=== PATIENT | female | born 2005 | race Caucasian/White ===

== ENCOUNTER 2023-01-24 01:20 | Emergency (ER) | payer OTHER ==
--- OUTSIDE RECORDS SUMMARY | 2023-01-24 01:23 | XMS REPORT | Continuity of Care Document ---
:2005 Author Organization [facility] t Address [address] [place] [address] [place] [address] Care Team Providers Name Role Phone Zackary Joya Attending Clinician Unavailable Edson Love Attending Clinician EDSON FAJARDO Attending Clinician Unavailable Physician, No Primary or Family Admitting Clinician Unavaila ble Payers Payer Name Policy Type Policy Number Effective Date Expiration Date S ource Problems Condition Condition Condition Status Onset Resolution Last Treating Co mments Source Name Details Category Date Date Treatment Clinician Date No known No known Disease Unive rs active active ity of problems problems [facility] Allergies, Adverse Reactions, Alerts Allergy Allergy Status Severity Reaction(s) Onset Inactive Treating Comm ents Source Name Type Date Date Clinician No Known DA Active U [facility] Allergie 08-29 Irene s 00:00: Regiona [address] [place] [address] Clindamy Propensi Active Rash Univer s rubina ty to 3-19 ity of adverse 00:: [place] reaction [address] [place] [address] CLINDAM DRUG Active Rash Univers RUBINA INGREDI 3-19 ity of 00:00: [address] Social History Social Habit Start Date Stop Date Quantity Comments Source Exposure to Not sure [facility] SARS-CoV-2 (event) Medica [facility] Sex Assigned At [birth year] [facility] [place] 00:00:00 00:00:00 Medical Branch Smoking Status Start Date Stop Date Source Unknown if ever smoked [facility] Medications Ordered Filled Start Stop Current Ordering Indication Dosage Frequency Signature Comments Components Source Medication Medication Date Date Medication? Clinician (SIG) Name Name FLUoxetine Yes 10mg Take 10 mg U nivers (PROZAC) 10 3-20 by mouth ity of mg capsule 00:15: daily. [place] 05 [facility] diphenhydrA 2020- No 12.5mg 12.5 mg, Univers MINE 05-19 Slow IV ity of (BENADRYL) 23:15: 22:10 Push, [place] injection 00 :00 ONCE, 1 Medical 12.5 mg dose, Fri Branch 05/19/20 at 1815, STAT metoclopram No 10mg 10 mg, Uni vers yanira HCl 05-19 Slow IV ity of (REGLAN) 23:15: 22:09 Push, [place] injection 00 :00 ONCE, 1 Medical 10 mg dose, Fri Branch 05/19/20 at 1815, MARCO iohexol 2020- No [id number] 100mL 100 mL, Univers (OMNIPAQUE 05-19 Intravenou it y of 350 23:00: 22:35 s, ONCE, 1 [place] BULK-100 00 :00 dose, Fri Medica l mL) 05/19/20 at Branch injection 1800, 100 mL Routine ketorolac 2020- No 30mg 30 mg, Unive rs (TORADOL) 05-19 Slow IV ity of injection 23:00: 22:02 Push, [place] 30 mg 00 :00 ONCE, 1 Medical dose, Fri Branch 05/19/20 at 1800, Routine
produce production team member approving Restricted medication : IBIKUNLE, FOLUSHO F NaCl 0.9% 2020- No 1000mL at 999 Uni vers (NS) bolus 05-19 mL/hr, ity of infusion 22:00: 23:51 1,000 mL, Darren as 1,000 mL 00 :00 IV Medical Infusion, Branch ONCE, 1 dose, 05/19/20 at 1700, MARCO ibuprofen Yes [id number] 600mg Take 1 U nivers 600 mg 3-19 tablet by ity of tablet 00:00: mouth [place] 00 every 6 Medical (six) Branch hours as needed for Pain (scale 4-6). Vital Signs Vital Name Observation Time Observation Value Comments Source Systolic blood 2020-05-20 00:00:00 127 mm[Hg] Univer sity of pressure [facility] Diastolic blood 2020-05-20 00:00:00 84 [facility]Hg[facility] 2020-05-20 00:00:00 77 /min [facility] Respiratory rate 2020-05-20 00:00:00 19 /min [facility] Oxygen saturation in 2020-05-20 00:00:00 98 /min [facility] Arterial blood by [facility] Pulse oximetry Ross Body temperature 2020-05-19 21:47:00 37.17 Myrtle [facility] Body weight 2020-05-19 21:47:00 84.823 kg [facility] Procedures Procedure Date / Time Performed Performing Clinician Wellington TYLERID-19 (ID NOW RAPID 2020-05-19 22:56:[address] [facility] TESTING) [facility] CT ABDOMEN PELVIS W 2020-05-19 22:44:[address] [facility] CONTRAST [facility] POCT TEST 2020-05-19 21:58:00 Edson Fajardo [facility] LIPASE 2020-05-19 21:57:00 Edson Fajardo [facility] COMP. METABOLIC PANEL 2020-05-19 21:57:00 [id number] CBC WITH DIFF 2020-05-19 21:57:00 Edson Fajardo [facility] URINALYSIS 2020-05-19 21:57:00 Edson Fajardo [facility] Encounters Start End Encounter Admission Attending Care Care Encounter Source Date/Time Date/Time Type Type Clinicians Facility Department ID 2022-08-29 2022-08-29 Emergency EM Crismon, HCACR TABATHA [id number] [facility] 17:39:00 23:17:00 [facility]12 2022-07-12 Outpatient [facility] [id number] Yakov 10:48:52 10:48:52 0512 F Raymon 2022-07-08 2022-07-08 Outpatient [facility] [id number] Yakov 09:08:15 09:08:15 0508 F [place] 2020-05-19 2020-05-19 Emergency [facility] [id number] Univers 16:48:00 19:17:00 [facility] [id number] [facility] [id number] [facility] [id number] [place] [address] Branch 2020-05-19 2020-05-19 Emergency [facility] [id number] Univers 16:48:00 16:48:00 EDSON [facility] Results Test Description Test Time Test Comments Results Result [facility] e Comments - CT ABD PELVIS 2022-08-29 W/CONT 20:35:00 [facility] : 2005 Sex: F Patient Name: ISAIAS MUJICA Unit No: [id number] EXAMS: CPT CODE: [id number] CT ABD PELVIS W/CONT 98903 Location: H3 CT of the abdomen and CT of the pelvis , 08/29/22 CLINICAL HISTORY: Abdominal pain. Concern for appendicitis in this 16 year-old patient presenting to the emergency room COMPARISON EXAM: None relevant to this study TECHNIQUE: A CT scan of the abdomen and pelvis conducted scanning in the axial plane acquiring contiguous 5mm slice thickness from the diaphragms through the pubic symphysis with non ionic contrast administered . Patient was also administered enteric contrast. There is acquisition of 2D coronal and sagittal reformatted images acquired. This was acquired on CT workstation using MPR software . The examination was performed on updated helical CT scanner , utilizing low-dose radiation technique. Automatic exposure control technique was utilized to reduce radiation dose. Unless otherwise specified , incidental findings do not require dedicated imaging followup. FINDINGS: The liver demonstrates normal size, attenuation and contour without focal masses or enlargement. The gallbladder is unremarkable. No biliary distention is seen. The spleen is normal in size without focal defects. The adrenal glands are unremarkable without masses. The pancreas demonstrates normal contour and attenuation without definite focal masses or enlargement. There is no effacement of the peripancreatic fat to suggest an inflammatory process. There are no peripancreatic fluid collections. Bowel gas pattern is non obstructed and non specific without pneumoperitoneum or pneumatosis. There is visualization of a normal appendix without appendicitis. There is fluid however seen embedded within the small bowel mesentery especially in the lower abdomen. With associated wall thickening. This is likely patient care representative enteritis likely infectious/inflammator y in etiology. Do not see a definite drainable collection or abscess. The colon appears unremarkable. The amount of fluid is fairly small without well-defined drainable collection. Both the abdominal aorta and IVC are unremarkable. There is no significant adenopathy within the abdomen. The kidneys demonstrate no hydronephrosis. No fluid collections are identified. [facility] NAME: NATE MUJICA[address] PHYS: ERIK - Torito Valdes [place], [place] [address] : 2005 AGE: 16 SEX: F LOC: ClintSINCERE PHONE #: [phone] EXAM DATE: 08/29/2022 STATUS: REG ER FAX #: [phone] RAD #: D/C DT PAGE 1 Signed Report (CONTINUED) Patient Name: ISAIAS MUJICA Unit No: [id number] EXAMS: CPT CODE: [id number] CT ABD PELVIS W/CONT 82044 (Continued) The bases of the lungs are clear. There is no acute osseous finding. The pelvic contents are unremarkable without mass. No focal fluid collections or adenopathy. IMPRESSION: Normal appendix without appendicitis Findings of concern for enteritis with ill-defined fluid wall and associated wall thickening involving distal small bowel loops in the pelvis without abscess. There is no pneumatosis or pneumoperitoneum. The findings are most likely infectious/inflammator y in etiology. at 2034 Reported and signed by: Dory Matias M.D. CC: Torito Valdes Dictated Date/Time: 08/29/2022 (2034) Technologist: Rome LEONE CTDI: DLP: Trnscrpt: 08/29/2022 (2034) [email or web address] FRANCES [place] NAME: GUANAKO[address] PHYS: VASILECandaceBladimir [place] [address] : 2005 AGE: 16 SEX: F LOC: CristoLive Gamer PHONE #: [phone] EXAM DATE: 08/29/2022 STATUS: REG ER FAX #: [phone] RAD #: D/C DT PAGE 2 Signed Report Patient Name: ISAIAS MUJICA Unit No: [id number] EXAMS: CPT CODE: [id number] CT ABD PELVIS W/CONT 61646 (Continued) Orig Print D/T: S: 08/29/2022 (2037) FRANCES [place] NAME: GUANAKO[address] PHYS: [place] [address] : 2005 AGE: 16 SEX: F LOC: B.Live Gamer PHONE #: [phone] EXAM DATE: 08/29/2022 STATUS: REG ER FAX #: [phone] RAD #: D/C DT PAGE 3 Signed Report HCG SERUM 2022-08-29 20:09:00 Test Item Value Reference Range Interpretation Comme nts HCG SERUM (test code = HCG) <1 mi-IU/ML 0-3 N INTERPRET B-HCG LEVELS LESS THAN OR EQUAL TO 3 MIU/ ML NEG BASIC METABOLIC [id number] 20:09:00 Test Item Value Reference Range Interpretation Comments SODIUM (test code 139.0 mmol/L 133-144 N = NA) POTASSIUM (test 3.4 mmol/L 3.5-5.1 L code = K) CHLORIDE (test 105 mmol/L 95-105 N code = CL) CARBON DIOXIDE 25 mmol/L 21-32 N (test code = CO2) ANION GAP (test 9.0 GAP calc 4.0-15.0 N code = GAP) GLUCOSE (test code 89 MG/DL 70-110 N = GLU) BLOOD UREA 8 MG/DL 7-18 N NITROGEN (test code = BUN) GLOMERULAR 133 estGFR >60 The Glomerular FILTRATION RATE Filtration R ate is a (test code = GFR) calculated parameterbased on serum Creatinin e, patient age and sex. GFR valuesless than 60 mL/min/1.73 squ are meters are jennifer cative ofChronic Kidne y Disease. Values less than 15 mL/min/1.73squa re meters indicate Kidney failure. The calculation for GFR is based on the CK D-EPI (2020) calculat ion. This formulais race indifferent and is the recommended for manuel for GFRby the [facility] Kidney Foundati on for Adults.The GFR will not calculate i f the sex is unknown or if thepatient's ag e is <18 years. CREATININE (test 0.60 MG/DL 0.55-1.30 N Results may be code = CREAT) depressed if p atient is takingN-Acetylc ysteine (NAC) and Metam izole (Dipyrone). CALCIUM (test code 9.4 MG/DL 8.5-10.1 N = CA) INDEX HEMOLYSIS 1 NORMAL <10 See_Comment [Automated message] (test code = MG Index/DL The system Regen HEMINDEX) generated this result transmitted ref erence range: 1 NORMAL . The reference range was not used to int erpret this result as normal/abnormal . INDEX ICTERIC 1 NORMAL <2 MG See_Comment [Automated message] (test code = Index/DL The system Regen ICTINDEX) generated this result transmitted ref erence range: 1 NORMAL . The reference range was not used to int erpret this result as normal/abnormal . INDEX LIPEMIA 1 NORMAL <50 See_Comment [Automated me ssage] (test code = MG Index/DL The system Regen LIPINDEX) generated this result transmitted ref erence range: 1 NORMAL . The reference range was not used to int erpret this result as normal/abnormal . HEPATIC FUNCTION [id number] 20:09:00 Test Item Value Reference Range Interpretation Comments TOTAL PROTEIN (test code = PROT) 8.5 G/DL 6.4-8.2 H ALBUMIN (test code = ALB) 4.3 G/DL 3.4-5.0 N BILIRUBIN TOTAL (test code = BILT) 0.39 MG/DL 0.00-1.00 N BILIRUBIN DIRECT (test code = 0.13 MG/DL 0.00-0.30 N BILD) BILIRUBIN INDIRECT (test code = 0.26 MG/DL 0.2-1.3 N BILIND) SGOT/AST (test code = AST) 16 Unit/L 15-37 N SGPT/ALT (test code = ALT) 22 Unit/L 12-78 N ALKALINE PHOSPHATASE TOTAL (test 76 Unit/L 45-117 N code = ALKP) [id number] 20:09:00 Test Item Value Reference Range Interpretation Comments LIPASE (test code = LIP) 101 Unit/L 114-286 L CBC W/O [id number] 20:08:00 Test Item Value Reference Range Interpretation Comments WHITE BLOOD CELL (test code = WBC) 9.8 K/mm3 4.1-12.1 N RED BLOOD CELL (test code = RBC) 5.03 M/mm3 3.8-5.5 N HEMOGLOBIN (test code = HGB) 10.5 G/DL 10.6-15.8 L HEMATOCRIT (test code = HCT) 34.9 % 31.8-47.4 N MEAN CELL VOLUME (test code = MCV) 69.4 fL 80.1-101.1 L MEAN CELL HGB (test code = MCH) 20.9 pg 25.3-35.3 L MEAN CELL HGB CONCETRATION (test 30.1 G/DL 32.7-35.1 L code = MCHC) RED CELL DISTRIBUTION WIDTH (test 17.2 % 12.2-16.4 H code = RDW) PLATELET COUNT (test code = PLT) 441 K/mm3 155-337 H MEAN PLATELET VOLUME (test code = 8.7 fL 6.8-11.2 N MPV) DIFFERENTIAL [id number] 20:08:00 Test Item Value Reference Range Interpretation Comments MORPHOLOGY COMMENT (test code ON SCAN NORMAL RBCS = MOC) PLATELET ESTIMATE (test code SL INCR ON SCAN ADEQUATE = PLTEST) MICROCYTOSIS (test code = SLIGHT ON SCAN NONE MICR) UA RFLX MICR CULT IF [id number] 19:54:00 Test Item Value Reference Range Interpretation Comments UA COLOR (test code = ORANGE DESCRIPT YELLOW COLU) UA APPEARANCE (test TURBID CLEAR A code = APPU) (1+)HAZY-CLDY DESCRIPT UA GLUCOSE DIPSTICK NORMAL (0) See_Comment [Automa arnoldo (test code = DGLUU) mg/dL message] The system which generated this result transmit arnoldo reference range : 0 (NORMAL). The reference range was not used to interpret this result as normal/abnormal . UA BILIRUBIN DIPSTICK 1.0 (1+) mg/dL See_Comment A [Au tomated (test code = BILU) message] The system which generated this result transmit arnoldo reference range : (NEG) 0. The reference range was not used to interpret this result as normal/abnormal . UA KETONE DIPSTICK 20 (1+) mg/dL See_Comment A [Automa arnoldo (test code = KETU) message] The system which generated this result transmit arnoldo reference range : (NEG) 0. The reference range was not used to interpret this result as normal/abnormal . UA SPECIFIC GRAVITY 1.027 SG 1.001-1.035 (test code = SGU) UA BLOOD DIPSTICK NEGATIVE (0.00) See_Comment [Autom ated (test code = BIPIN) mg/dL message] T he system which generated this result transmit arnoldo reference range : 0 (NEG). The reference range was not used to interpret this result as normal/abnormal . UA PH DIPSTICK (test 5.5 pH UNITS 4.6-8.0 code = ASUNCION) UA PROTEIN DIPSTICK 30 (1+) mg/dL See_Comment A [Autom ated (test code = PROU) message] The system which generated this result transmit arnoldo reference range : (NEG) <30. The reference range was not used to interpret this result as normal/abnormal . UA UROBILINIOGEN 3 (1+) mg/Dl See_Comment A [Automated DIPSTICK (test code = messag e] The URO) system which generated this result transmit arnoldo reference range : (NORM)<2.0. The reference range was not used to interpret this result as normal/abnormal . UA NITRITE DIPSTICK 1+ SCREEN NEG A (test code = TATUM) UA LEUKOCYTE ESTERASE 500 Leuk/mcL See_Comment A [Auto mated DIPSTICK (test code = messag e] The LEUU) system which generated this result transmit arnoldo reference range : (NEG) 0. The reference range was not used to interpret this result as normal/abnormal . UA COMMENT (test code SPECIMEN SpecComment = COMU) COMMENT NoteSPEC UA WBC (test code = 10-20 #WBC/HPF 0-3 A WBCU) UA RBC (test code = 5-10 #RBC/HPF 0-3 A RBCU) UA BACTERIA (test TRACE >0 /HPF NONE-FEW code = BACU) UA SQUAMOUS CELLS MODERATE >10 NONE-SQepi (test code = SQU) /UL UA MUCUS (test code = FEW /LPF NONE A MUCU) UA CULTURE NEEDED? Crit met Cult byWBC (test code = UACULT) CULT-OK Criteria Indication for culture: Dysuria/FrequencyUA DESCRIPTION: CLEAN CATCH COMPREHENSIVE METABOLIC [id number] 07:00:58 Test Item Value Reference Range Interpretation Comments GLUCOSE (test code = 95 MG/DL 70-99 2216) BUN (test code = 7 MG/DL -2207) CREATININE (test 0.53 MG/DL 0.50-1.10 code = 2214) eGFR (2020 CKD-EPI) NO CALC >60 NOTE: 2 021 CKD-EPI (test code = 22448) ML/MIN/1.73 is not v alidated for pediatric populations. Fo r patients less t worrell 19 years old, consider NKF pediatric eGFR calculator [email or web address].kid jacinto.o rg/professional s/kdo qi/gfr_calculat orPed CALC BUN/CREAT (test 13 RATIO 08-28 code = 2235) SODIUM (test code = 139 MEQ/L 027-596 6617) POTASSIUM (test code 4.3 MEQ/L 3.5-5.4 = 2228) CHLORIDE (test code 102 MEQ/L 95-107 = 2215) CARBON DIOXIDE (test 19 MEQ/L 19-31 code = 2206) CALCIUM (test code = 9.9 MG/DL 8.5-10.5 2208) PROTEIN, TOTAL (test 7.5 G/DL 6.1-8.3 code = 2229) ALBUMIN (test code = 4.8 G/DL 3.5-5.2 2200) CALC GLOBULIN (test 2.7 G/DL 2.1-3.7 code = 2240) CALC A/G RATIO (test 1.8 RATIO 1.0-2.6 code = 2234) BILIRUBIN, TOTAL <0.2 MG/DL See_Comment [Automated message] (test code = 220) The syste m which generated this result transmit arnoldo reference range : <=1.2. The refe rence range was not u sed to interpret th is result as normal/abnormal . ALKALINE PHOSPHATASE 96 U/L 45-126 (test code = 2203) AST (test code = 18 U/L 9-40 2217) ALT (test code = 17 U/L 5-40 2218) LIPID [id number] 07:00:58 Test Item Value Reference Range Interpretation Comments CHOLESTEROL (test 162 MG/DL <200 code = 2210) TRIGLYCERIDES (test 111 MG/DL <150 code = 2232) HDL CHOLESTEROL (test 46 MG/DL >39 code = 2220) CALC LDL CHOL (test 95 MG/DL <100 NOTE: C ALCULATED LDL code = 2237) IS BASED ON ANNA-GOODWIN METHOD WHICHINCLUDES ADJUSTABLE TRIGLYCERIDE:VL DL CHOLESTEROL RAT IO.THIS FACTOR VARIES B Y MEASURED TRIGLY CERIDE AND NON-HDLCHOL ESTEROL CONCENTRATIONS WITH INCREASED CALCU LATED LDL SEENIN HIGH ER TRIGLYCERIDE OR LOWER NON-HDL SPECIME NS. FOR MOREINFORMATION , SEE CLIENT ANNOUNCE MENT AT [email or web address]-[email or web address] RISK RATIO LDL/HDL 2.07 RATIO <3.22 (test code = 2238) HIV 1/2 4TH GEN, RFLX [id number] 05:38:46 Test Item Value Reference Range Interpretation Comments HIV 1/2 4TH GEN, RFLX CONF (test NON-REACTIVE NON-REACTIVE code = 3514) HEPATITIS C [id number] 05:38:46 Test Item Value Reference Range Interpretation Comments HEPATITIS C NON-REACTIVE NON-REACTIVE UNLESS OTHERWI SE ANTIBODY (test code INDICATE D, ALL TESTING = 4675) [facility] [place] [facility] [place] [address] JUNONilsa GONZALES DIRECTOR: Johnathon VALENZUELA ELIJAH NUMBER [id number] [facility] ACCREDITATION N O. [id number] HEMOGLOBIN [id number] 04:48:45 Test Item Value Reference Range Interpretation Comments HEMOGLOBIN A1c (test code = 20767) 5.6 % 4.2-5.6 CBC W/AUTO DIFF WITH [id number] 03:35:13 Test Item Value Reference Range Interpretation Comments WBC (test code = 5.6 K/UL 3.5-11.0 1001) RBC (test code = 5.00 M/UL 3.80-5.40 1002) HEMOGLOBIN (test code 10.6 G/DL 11.5-15.5 L = 1003) HEMATOCRIT (test code 34.8 % 34.0-45.0 = 1004) MCV (test code = 69.6 fL 80.0-99.0 L 1005) MCH (test code = 21.2 PG 25.0-33.0 L 1006) MCHC (test code = 30.5 G/DL 31.0-36.0 L 1007) RDW (test code = 17.3 % 11.5-15.0 H 1038) NEUTROPHILS (test 49.7 % code = 1008) LYMPHOCYTES (test 41.2 % code = 1010) MONOCYTES (test code 6.4 % = 1011) EOSINOPHILS (test 1.8 % code = 1012) BASOPHILS (test code 0.7 % = 1013) IMMATURE GRANULOCYTES 0.2 % (test code = 1036) NUCLEATED RBCS (test 0.0 /100 WBC'S See_Comment [Aut omated code = 1065) message] The sy stem which generated this result transmitted reference range : 0.0. The refere nce range was not u sed to interpret th is result as normal/abnormal . PLATELET COUNT (test 460 K/UL 130-400 H code = 1015) ABSOLUTE NEUTROPHILS 2.80 K/UL 1.50-7.50 (test code = 1066) ABSOLUTE LYMPHOCYTES 2.32 K/UL 1.00-4.00 (test code = 1067) ABSOLUTE MONOCYTES 0.36 K/UL 0.20-1.00 (test code = 1068) ABSOLUTE EOSINOPHILS 0.10 K/UL 0.00-0.50 (test code = 1040) ABSOLUTE BASOPHILS 0.04 K/UL 0.00-0.20 (test code = 1069) ABS IMMATURE 0.01 K/UL 0.00-0.10 GRANULOCYTES (test code = 1020) ABS NUCLEATED RBCS 0.00 K/UL 0.00-0.11 (test code = 38217) CT ABDOMEN PELVIS W [id number] 23:52:35 No acute process RL: [id number] ORDERING PHYSICIAN: EDSON FAJARDO HISTORY: RLQ abdominal pain, appendicitis suspected (Age >= 14y) TECHNIQUE: CT abdomen pelvis with IV contrast. ?CT performed according toALARATechnical Quality: AdequateCOMPARISON: none FINDINGS: The lung bases are unremarkable. The liver, gallbladder, pancreas, adrenal glands, spleen, kidneys, aorta,uterus, urinary bladder, ovaries are unremarkable. No retroperitoneal adenopathy. Absence of oral contrast limits evaluation of the bowel. The visualizedportions of the appendix are unremarkable.There is no distention of bowel, free air, free fluid or focalintra-abdominal collection.No pelvic adenopathy or significant free fluid is evident. No acute osseous abnormality identified [facility], Radiant Results Inft User - 05/19/2020 6:56 PM CDTORDERING PHYSICIAN: EDSON FAJARDOHISTORY: RLQ abdominal pain, appendicitis suspected (Age >= 14y) TECHNIQUE: CT abdomen pelvis with IV contrast. CT performed according toALARATechnical Quality: AdequateCOMPARISON: noneFINDINGS:Thelung bases are unremarkable.The liver, gallbladder, pancreas, adrenal glands, spleen, kidneys, aorta,uterus, urinary bladder, ovaries are unremarkable.No retroperitoneal adenopathy.Absence of oral contrast limits evaluation of the bowel. The visualizedportions of the appendix are unremarkable.There isno distention of bowel, free air, free fluid or focalintra- abdominal collection.No pelvic adenopathyor significant free fluid is evident.No acute osseous abnormality identifiedIMPRESSIONNo acute processRL: [id number] [facility] (ID NOW RAPID TESTING)2020-05-19 23:17:40 Test Item Value Reference Range Interpretation Comments SARS-CoV-2 Rapid ID NOW Not Detected Not Detected (test code = 36029-6) JS (test code = JS) ID NOW COVID-19 Assay is an isothermal nucleic acid amplification test intended for the qualitative detection of nucleic acid from SARS-CoV-2 viral RNA in nasopharyngeal (SECURITIES COMPLIANCE EXAMINER) specimens. It is used under Emergency Use Authorization (EUA) by FDA. The limit of detection (LOD) of the assay is 125 Genome Equivalents/mL. A positive result is indicative of the presence of SARS-CoV-2 RNA. ?Clinical correlation with patient history and other diagnostic information is necessary to determine patient infection status. A negative (Not Detected) result does not preclude SARS-CoV-2 infection. In patients with clinical symptoms and other tests that are consistent with SARS-CoV-2 infection, negative results should be treated as presumptive negative and a new specimen should be tested with alternative PCR molecular test. Invalid: Please collect a new specimen for repeat patient testing if clinically indicated. Lab Interpretation Normal (test code = 24253-1) [facility]31[facility]30 Test Item Value Reference Range Interpretation Comments APPEARANCE (test code = Hazy Clear A 8726020629) COLOR (test code = Yellow Yellow 3061545215) PH (test code = 4.8-8.0 8155956706) SP GRAVITY (test code = 1.003-1.030 2987307417) GLU U QUAL (test code = Normal Normal 9069505463) BLOOD (test code = Negative Negative 4851833331) KETONES (test code = 20 mg/dL Negative A 9644788235) PROTEIN (test code = Negative Negative 2887-8) UROBILIN (test code = Normal Normal 6279759624) BILIRUBIN (test code = Negative Negative 9125702818) NITRITE (test code = Negative Negative 2151541531) LEUK CORRINE (test code = Negative Negative 5329924987) RBC/HPF (test code = See_Comment [Autom ated message] 2397241834) The system Regen generated this result transmitted ref erence range: 0 - 3 HP F. The reference range was not used to int erpret this result as normal/abnormal . WBC/HPF (test code = See_Comment [Autom ated message] 0196040144) The system Regen generated this result transmitted ref erence range: 0 - 5 HP F. The reference range was not used to int erpret this result as normal/abnormal . BACTERIA (test code = Few Negative A 1452870726) MUCOUS (test code = Slight Negative LPF A 3073280436) SQ EPITH (test code = HPF 8383610116) Lab Interpretation (test Abnormal code = 22027-5) [facility]. METABOLIC PANEL (72820)2020-05-19 22:21:26 Test Item Value Reference Range Interpretation Comments NA (test code = 138 mmol/L 135-145 4407248683) K (test code = 3.8 mmol/L 3.5-5.0 4265506091) CL (test code = 100 mmol/L 98-108 3498696022) CO2 TOTAL (test code = 26 mmol/L 23-31 5916594206) AGAP (test code = 2-16 0555856818) BUN (test code = 11 mg/dL 7-23 8014552840) GLUCOSE (test code = 93 mg/dL 70-110 8437595337) CREATININE (test code = 0.51 mg/dL 0.50-1.04 8213002789) TOTAL BILI (test code = 0.4 mg/dL 0.1-1.3 9272711035) CALCIUM (test code = 9.7 mg/dL 8.6-10.6 2304502401) T PROTEIN (test code = 8.6 g/dL 6.3-8.2 H 8301362041) ALBUMIN (test code = 5.3 g/dL 3.5-5.0 H 4020442118) ALK PHOS (test code = 101 U/L 35-165 8496918483) ALTv (test code = 25 U/L 5-35 1742-6) AST(SGOT) (test code = 29 U/L 13-40 4752355574) JS (test code = JS) Association of Glomerular Filtration Rate (GFR) and Staging of Kidney Disease* + --+ --+ ------+| GFR (mL/min/1.73 m2) ?| With Kidney Damage ?| ?Without Kidney Damage+ --------+ --------+ +| ?>90 ?| ?Stage one ?| ? Normal ?+ ---+ ---+ -------+| ?60-89 ?| ?Stage two ?| ? Decreased GFR ? + --+ --+ ------+| ?30-59 ?| ?Stage three ?| ? Stage three ? + --+ --+ ------+| ?15-29 ?| ?Stage four ? | ? Stage four ?+ ---+ ---+ -------+| ?<15 (or dialysis) ? ?| ?Stage five ? | ? Stage five ?+ ---+ ---+ -------+ *Each stage assumes the associated GFR level has been in effect for at least three months. ?Stages 1 to 5, with or without kidney disease, indicate chronic kidney disease. Notes: Determination of stages one and two (with eGFR >59mL/min/1.73 m2) requires estimation of kidney damage for at least three months as defined by structural or functional abnormalities of the kidney, manifested by either:Pathological abnormalities or Markers of kidney damage (including abnormalities in the composition of the blood or urine or abnormalities in imaging tests). Lab Interpretation Abnormal (test code = 14941-3) [facility] [id number] 22:20:46 Test Item Value Reference Range Interpretation Comments LIPASE (test code = 4545907547) 83 U/L 0-220 Lab Interpretation (test code = Normal 00199-8) [facility] with [id number] 22:12:45 Test Item Value Reference Range Interpretation Comments WBC (test code = See_Comment H [Automated 9630-2) message] The system which generated this result transmit arnoldo reference range : 4.50 - 13.50 10*3/?L. The reference range was not used to interpret this result as normal/abnormal . RBC (test code = See_Comment [Automated 186-8) message] The system which generated this result transmit arnoldo reference range : 4.10 - 5.10 10*6/?L. The reference range was not used to interpret this result as normal/abnormal . HGB (test code = 11.5 g/dL 12.0-16.0 L 718-7) HCT (test code = 37.2 % 36.0-45.0 4544-3) MCV (test code = 73.7 fL 78.0-95.0 L 787-2) MCH (test code = 22.8 pg 26.0-32.0 L 785-6) MCHC (test code = 30.9 g/dL 32.0-36.0 L 786-4) RDW-SD (test code = 39.4 fL 38.5-49.0 41478-0) RDW-CV (test code = 14.9 % 11.5-14.0 H 788-0) PLT (test code = See_Comment H [Automated 777-3) message] The system which generated this result transmit arnoldo reference range : 135 - 361 10*3/ ?L. The reference range was not u sed to interpret th is result as normal/abnormal . MPV (test code = 8.8 fL 9.4-13.3 L 69995-2) NRBC/100 WBC (test See_Comment [Automat ed code = 6833168639) message] The system which generated this result transmit arnoldo reference range : 0.0 - 10.0 /100 WBCs. The reference range was not used to interpret this result as normal/abnormal . NRBC x10^3 (test code <0.01 See_Comment [Auto mated = 2642986167) message] The system which generated this result transmit arnoldo reference range : 10*3/?L. The reference range was not used to interpret this result as normal/abnormal . GRAN MAT (NEUT) % 79.9 % (test code = 770-8) IMM GRAN % (test code 0.70 % = 4299576786) LYMPH % (test code = 13.0 % 736-9) MONO % (test code = 5.6 % 5905-5) EOS % (test code = 0.4 % 713-8) BASO % (test code = 0.4 % 706-2) GRAN MAT x10^3(ANC) 13.11 10*3/uL 1.50-10.30 H (test code = 2956494702) IMM GRAN x10^3 (test 0.11 10*3/uL 0.00-0.06 H code = 5462077612) LYMPH x10^3 (test code 2.13 10*3/uL 0.70-7.40 = 731-0) MONO x10^3 (test code 0.91 10*3/uL 0.00-0.50 H = 742-7) EOS x10^3 (test code = 0.07 10*3/uL 0.00-0.40 711-2) BASO x10^3 (test code 0.06 10*3/uL 0.00-0.10 = 704-7) Lab Interpretation Abnormal (test code = 28385-9) [facility] [id number] 21:58:00 Test Item Value Reference Range Interpretation Comments POCT PREG (test code = 1605) negative On board controls acceptable with present C Line (test code = 3574) POCT PREG LOT # (test code = 3575) [id number] POCT PREG TEST DATE (test 12/31/2021 code = 3576) Lab Interpretation (test code = Normal 56868-8) [facility] Notes Date/Time Note Provider Source 2022-09-02 19:13:00 [id number]:13:00 [facility] ([facility])Pharmacy Progress NoteREPORT#:[id number] REPORT STATUS: SignedDATE:09/02/22 TIME: 1912 PATIENT: ISAIAS MUJICA UNIT #: [id number]#: [id number] ROOM/BED:: 03 AGE: 16 SEX: F ATTEND: Zackary Joya MDA DT: AUTHOR: Tacos Da Silva [facility] * ALL edits or amendment s must be made on the electronic/computer document * Pharmacy NoteTreatment plan: initiation of therapyRationale:Patient is a 16 year old patien t who was seen in the Emergency Room on 08/29/22 with complaints of abdominal pain with vomiting and diarrhea. While in the ER, aurine sample was collected which grew E. coli. Patient was not prescribed antibiotics at discharge. Contacted Dr. Serrano to inform him of the culture results and the need to start therapy. No response has been received by pharmacy. at 1920 RPT #:[id number] OF REPORTPRProgress [id number]:13:00B.[id number] hanane able for patient [id number]:20:58 2022-08-29 23:03:00 [id number]:03:00 [facility] ([facility])EMERGENCY PROVIDER REPORTREPORT#:[id number] REPORT STATUS: SignedDATE:08/29/22 TIME: 2302 PATIENT: ISAIAS MUJICA UNIT #: [id number]#: [id number] ROOM/BED:AGE: 16 SEX: F PCP PHYS: N o Primary or Family PhysicianSERVICE AUTHOR: Jeremiah Smith APRNNP * ALL edits or amendments must be made on the electronic/computer document * Jeremiah Smith 08/29/222302:HPI-General Illness Free Text HPI NotesFree Text HPI NotesPatient is a 16-year-old female presents with complaints of abdominal morgan n with vomiting and diarrhea. She has been sick fo r 3 days. Reports that she has not vomited since yesterday but has had copious diarrhea since. Denies fever, bloodin the diarrhea. Reports abdominal pain and abdominal cramps. Denies ches t pain, shortness of breath. No known sick contacts. No recent traveling. GeneralInitial Greet Date/Time 08/29/221756 PresentationChief Complaint Abdominal pain Review of Systems ROS StatementsAll systems rev neg except as marked. Past Medical History - AdultStated Complaint SEN T BY URGENT CARE FOR POSSIBLE APPENDICITISAllergiesCoded Allergies:No Known Allergies (08/29/22) Physical Exam Vital SignsVital SignsFirst Documented: Result Date Time Pulse Ox 100 08/29 1750 B/P 135/87 08/29 175 B/P Mean 103 08/29 175 O2 Delivery Room ai r 08/29 1750 Temp 98.9 08/29 1750 Pulse 88 08/29 1750 Resp 18 08/29 1750 Last Documented: Result Date Time Pulse Ox 100 08/29 1750 B/P 135/87 08/29 1750 B/P Mean 103 08/29 1750 O2 Delivery Room air 08/29 1750 Temp 98.9 08/29 1750 Pulse 8 8 08/29 1750 Resp 18 08/29 1750 Review of Vital Signs Reviewed Free Text PE NotesFree Text PE NotesGeneral/Const: Awake, Alert, No acute distress, Well appearing, Well developed, Well hydrated, Well nourished, Cooperative, Not toxic appearingHead: Atraumatic, Normocephalic Neck: Atraumatic, SuppleResp/Chest: Breath sounds NL, Breath sounds = bilat, No respiratory distress, No rales, No rhonchi, No wheezing, No retractions, No stridor, No chest tenderness, No chest wall deformity, No crepitusCardiovascular: Heart rate NL, Regular rhythm, Heart sounds NL, No gallop, No murmurs, No rubs, Cap refill not delayed, Peripheral circulation NL, Pulses = bilaterally, Abdomen/GI: Atraumatic, Soft, mild diffuse tenderness, nonspecific no guarding, No rebound, BS normoactive, No distention, No hernia, No palpable mass, No pulsatile massMS: All extremities with Normal range of motion, no gross deformity, no swelling, no pulse deficitsM S Back: Atraumatic, No CVA tendernessSkin: Atraumatic, Color NL, No rash, Warm, Dry, Intact , Turgor NL, No swellingNeurologic: Oriented X3, Speech NL, No motor deficits, No sensory deficitsPsychiatric: Affect NL, Mood NL Interpretation Diagnostics Lab Results InterpretationResultsLaboratory Tests 08/29/221926:[Embedded Image Not Available]Laboratory Tests: 08/29 1926 Chemistry Sodium (133 - 144 mmol/L) 139.0 Potassium (3.5 - 5.1 mmol/L) 3.4 L Chloride (95 - 105 mmol/L) 105 Carbon Dioxide (2 1 - 32 mmol/L) 25 Anion Gap (4.0 - 15.0 GAP calc) 9.0 BUN (7 - 18 MG/DL) 8 Creatinine (0.55 - 1.30 MG/DL) 0.60 Glomerular Filtr Rate (>60 estGFR) 133 Glucose (70 - 110 MG/DL) 89 Calcium (8.5 - 10.1 MG/DL) 9.4 Total Bilirubin (0.00 - 1.00 MG/DL) 0.39 Direct Bilirubin (0.00 - 0.30 MG/DL) 0.13 Indirect Bilirubin (0.2 - 1.3 MG/DL) 0.26 AST (15 - 37 Unit/L) 16 ALT (12 - 78 Unit/L) 22 Total Alk Phosphatase (45 - 117 Unit/L) 76 Total Protein (6.4 - 8.2 G/DL) 8.5 H Albumin (3.4 - 5. 0 G/DL) 4.3 Lipase (114 - 286 Unit/L) 101 L Specimen Appearance (1 NORMAL Index/DL) 1 NORMAL <2 MG Specimen Hemolysis (1 NORMAL Index/DL) 1 NORMAL <10 MG Hematology WBC (4.1 - 12.1 K/mm3) 9.8 RBC (3.8 - 5.5 M/mm3) 5.03 Hgb (10.6 - 15.8 G/DL) 10.5 L Hct (31.8 - 47.4 %) 34.9 MCV (80.1 - 101.1 fL) 69.4 L MCH (25.3 - 35.3 pg) 20.9 L MCHC (32.7 - 35.1 G/DL) 30.1 L RDW (12.2 - 16.4 %) 17.2 H Plt Count (155 - 337 K/mm3) 441 H MPV (6.8 - 11.2 fL) 8.7 Platelet Estimate (ADEQUATE ON SCAN) SL INCR Microcytosis (NONE ON SCAN) SLIGHT Miscellaneous Maternal Serum HCG (0 - 3 mi-IU/ML) <1 Urines Urine Color (YELLOW DESCRIPT ) ORANGE Urine Appearance (CLEAR DESCRIPT) TURBID (1+)HAZY-CLDY H Urine pH (4.6 - 8.0 pH UNITS) 5. 5 Ur Specific [place] (1.001 - 1.035 SG) 1.027 Urine Protein ((NEG) <30 mg/dL) 30 (1+) H Urine Glucose (UA) (0 (NORMAL) mg/dL) NORMAL (0) Urine Ketones ((NEG) 0 mg/dL) 20 (1+) H Urine Blood (0 (NEG) mg/dL) NEGATIVE (0.00) Urine Nitrite (NEG SCREEN) 1+ H Urine Bilirubin ((NEG) 0 mg/dL) 1.0 (1+) H Urine Urobilinogen ((NORM)<2.0 mg/Dl) 3 (1+) H Ur Leukocyte Esterase ((NEG) 0 Leuk/mcL) 500 H Urine RBC (0 - 3 #RBC/HPF) 5-10 H Urine WBC (0 - 3 #WBC/HPF) 10-20 H Ur Squamous Epith Cells (NONE - SQepi /UL) MODERATE >10 Urine Bacteria (NONE - FEW /HPF) TRACE >0 Urine Mucus (NONE /LPF) FEW H Urine Culture Screen (Cult byWBC Criteria) Crit met CULT-OK Urine Comment (SpecComment NoteSPEC) SPECIMEN COMMENT Microbiology: Date/Time Procedure - Status Sourc e Growth 08/29 1926 Urine Culture - COMP URINE ESCHERICHIA COLI HERIBERTO ALBICANS Recent Impressions:CAT SCAN - CT ABD PELVIS W/CONT 08/02 Report Impression - Status: SIGNED Entered: 08/29/20222037 IMPRESSION: Normal appendix without appendicitis Findings of concer n for enteritis with ill-defined fluid wall andassociated wall thickening involving distal small bowel loops in thepelvis without abscess. There is no pneumatosis or pneumoperitoneum. The findings are most likely infectious/inflammatory in etiology. Impression By: [email or web address] - Dory Matias M.D. Re-Evaluation MDM Free Text MDM NotesFree Text MDM NotesNumber and complexit y of problems []Differential diagnosis considered but not limited to: Appendicitis, gastroenteritis, nonspecific abdominal pain MDM dataExternal documents reviewed []My EKG interpretation: []My CT interpretation: []My x-ray interpretation: []Labs reviewed by me and are significant for: CBC essentially unremarkable, chemistry essentially unremarkable , hCG less than 1, urine with 1+ ketones, 500 leukocyte esterase, 10-20 white cells, trace bacteria Decision rules/scores evaluated: []Discussed with: []Consider admission for: []Treatment and disposition: Patient evaluated for abdominal pain vomiting diarrhea. Underwent labs and CT scan, concern for enteritis, patient is well-appearing nontoxic tolerating p.o. Given IV fluids here in ER plan for outpatient follow-up and outpatient ED course: Patient is well-appearing, nontoxic, tolerating p.o. Discussed lab findings, CT findings, treatment plan, follow-up recommendations as well as retur n precautions. Patient verbalized understanding an d agrees with plan. Shared decision making: Utilized for treatment plan ED CourseMedication(s) OrderedMedication(s) Ordered:Electrolytic, Caloric, And Nicola Sig/Nitish Start time Last Medication Dose Route Stop Time Status Admin Sodium Chloride 1,000 ML ONCE ONE 08/29 2244 DC 08/29 IV 08/29 Patient Discharge Departure Vital Signs/ConditionVital SignsFirst Documented: Result Date Time Pulse Ox 100 08/29 1751 B/P 135/87 08/29 1751 B/P Mean 103 08/29 1751 O2 Delivery Room air 08/29 1751 Temp 98.9 08/29 1751 Pulse 88 08/29 1751 Resp 1 8 08/29 1751 Last Documented: Result Date Time Pulse Ox 100 08/29 1751 B/P 135/87 08/29 1751 B/ P Mean 103 08/29 1751 O2 Delivery Room air 08/29 1751 Temp 98.9 08/29 1751 Pulse 88 08/29 1751 Resp 18 08/29 1751 All vital signs available at the time of this entry have been reviewed. Condition Stable Clinical ImpressionClinical ImpressionPrimary Impression: Abdominal pain Disposition DecisionDischarge )( Discharged to Home Yes )( Time 2309 )( Date 08/29/22 Discharge/Care PlanCounseled Regarding Diagnosis , Lab results, Imaging studies, Prescriptions, Needfor follow-up, When to return to ED(Auto) PrescriptionsCurrent Visit ScriptsDICYCLOMINE (BENTYL) 20 MG PO QID DICYCLOMINE (BENTYL) 20 MG PO QID #20 TABS ONDANSETRON ODT (ZOFRAN ODT) 4 M G PO Q8H PRN PRN NAUSEA/VOMITING ONDANSETRON ODT (ZOFRAN ODT) 4 MG PO Q8H PRN PRN NAUSEA/VOMITING #15 TABS Patient Instructions ED Abdominal Pain AdultAdditional InstructionsRest.Drink plenty of fluids.Medication as prescribed.Take Tylenol or Motrin per bottle instructions as needed for pain.Follow-up with primary care provider in 2 t o 3 days.Return to ER for any worsening or concerning symptoms. Discharge NoteI have spoken with the patient and/or caregivers. I have explained the patient'scondition, diagnoses and treatment plan based on the information availabl e to meat this time. I have answered the patient's and/or caregiver's questions and addressed any concerns. The patient and/or caregivers have as good an understanding of the patient's diagnosis , condition and treatment plan as can beexpected a t this point. The vital signs have been stable. Th e patient's condition is stable and appropriate fo r discharge from the emergency department. The patient will pursue further outpatient evaluatio n with the primary care physician or other designated or consulting physician as outlined i n the discharge instructions. The patient and/or caregivers are agreeable to this planof care and follow-up instructions have been explained in detail. The patient and/or caregivers have received these instructions in written format an d have expressed an understanding of the discharge instructions. The patient and/or caregivers are aware that any significant change in condition o r worsening of symptoms should prompt an immediate return to this or the closest emergency department or a call to 911. Zackary Joya 09/08/22 0618:Patient Discharge Departure Discharge/Care PlanReferralsResource Referral: [facility] Address: [address] [place] [address] [place] [address] Supervising Physicia n Note MidLv Saw Pt AloneI have reviewed the PA/SECURITIES COMPLIANCE EXAMINER's note and plan of care. I was available for consultation as needed at all times during the patient's visit in the emergency department. I agree with the clinical impression, plan and disposition. at 0258 at 0619RPT #:[id number] OF REPORTEDEmerforrest city medical center department [id number]:03:00B.[id number] a ilable for patient [id number]:58:48 2022-08-29 17:58:00 [id number]:58:00 [facility] ([facility])EMERGENCY PROVIDER REPORTREPORT#:[id number] REPORT STATUS: SignedDATE:08/29/22 TIME: 1757 PATIENT: ISAIAS MUJICA UNIT #: [id number]#: [id number] ROOM/BED:AGE: 16 SEX: F PCP PHYS: N o Primary or Family PhysicianSERVICE AUTHOR: Torito Valdes * ALL edits or amendments must be made on the electronic/computer document * Provider in Triag e - Adult Provider in TriageInitial Greet Date/Yuriy e 08/29/221756 Greflavio NoteI have greeted and performed a focused rapid initial assessment of this patient.A comprehensive ED assessment and evaluation of the patient, analysis of all test results, and completion of the medical decision-making process will be conducted by additional ED providers. HPI Chief Complaint Abdominal painROSReports: Abdominal pain. PE General/Const No acute distress MSE Not CompleteThe medical screening exam is not complete. Further evaluation and/or treatment is required. The patient will be re-directed to the emergency department. PMH-Provider in TriageStated Complaint SENT BY URGENT CARE FOR POSSIBLE APPENDICITISAllergiesCoded Allergies:No Known Allergies (08/29/22) Smoking status: Smoking status for patients 13 years old or older: Never Smoker at 0550RPT #:[id number] OF REPORTEDEmergency department iricja0767-82-91H80:58:00B.[id number] a ilable for patient [id number]:50:14"
[2023-01-24 02:10] LABS: Absolute Lymphocytes (CBC) 2.6 K/uL (0.7-4.9); Hematocrit 33.2 % (36.0-45.0); Lymphocytes % 34.8 % (15.3-44.8); MCV 66.1 fL (80-100); MPV 6.8 fL (7.6-11.3); Platelets 411 thou/uL (152-406); RBC Red Blood Cell Count 5.02 M/uL (3.86-4.86)
[2023-01-24 02:20] LABS: Bilirubin Total 0.2 mg/dL (0.2-1.0); Potassium 3.7 mEq/L (3.5-5.1)
[2023-01-24 03:51] LABS: Specific Gravity 1.011 (1.005-1.030)
[2023-01-24 03:57] LABS: Renal Epithelial <5 /HPF (None Seen); Specific Gravity 1.011 (1.005-1.030); Urine Bacteria <20 /HPF (<20); Urine Bilirubin NEGATIVE (Negative); Urine Blood Negative (Negative); Urine Clarity Extremely Turbid (Clear); Urine Color Light-Yellow (Yellow); Urine Glucose NEGATIVE (Negative); Urine Mucus Slight /HPF (None Seen); Urine Protein NEGATIVE (Negative); Urine RBC <5 /HPF (None Seen); Urine Urobilinogen Normal (Normal); Urine pH 6.5 (5.0-7.0)
[2023-01-24 04:17] LABS: Blood Morphology Comment NOTED (NOT SEEN); Hypochromasia 1+; Platelet Estimate ADEQ; White Blood Cell Scan OK (OK)
--- NOTE | 2023-01-24 05:09 | ER ---
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 Patient stated LBM was yesterday with hard stool. Patient denies any vaginal or rectal bleeding. 01:23 Coronavirus screen: Vaccine status: Patient reports receiving the 2nd dose of the covid pf1 vaccine. 3 doses Client denies travel out of the [place] in the last 14 days. At this time, the client does not indicate any symptoms associated with coronavirus-19. Ebola Screen: Patient negative for fever greater than or equal to 101.5 degrees Fahrenheit, and additional compatible Ebola Virus Disease symptoms. Initial Sepsis Screen: Does the patient meet any 2 criteria? No. Patient's initial sepsis screen is negative. Does the patient have a suspected source of infection? No. Patient's initial sepsis screen is negative. Risk Assessment: Do you want to hurt yourself or someone else? Patient reports no desire to harm self or others. 01:23 Method Of Arrival: Ambulatory pf1 01:23 Acuity: MYLA 3 pf1 Historical: - Allergies: 01:35 Clindamycin; pf1 - PMHx: 01:35 anxiety; pf1 - PSHx: 01:35 Tonsillectomy; Adenoid excision; pf1 - Immunization history:: Adult Immunizations up to date, Last tetanus immunization: < 10 years ago Flu vaccine is not up to date. - Social history:: Smoking status: Patient denies any tobacco usage or history of. Patient/guardian denies using alcohol, street drugs. - Family history:: not pertinent. - Hospitalizations: : No recent hospitalization is reported. Screenin:17 [facility] ED Fall Risk Assessment (Adult) History of falling in the last 3 months, jb4 including since admission No falls in past 3 months (0 pts) Confusion or Disorientation No (0 pts). Abuse screen: Denies threats or abuse. Nutritional screening: No deficits noted. Tuberculosis screening: No symptoms or risk factors identified. Assessment: 01:30 General: Appears in no apparent distress. uncomfortable, Behavior is calm, cooperative. jb4 Pain: Complains of pain in pelvis Pain does not radiate. Pain currently is 8 out of 10 on a pain scale. Neuro: Level of Consciousness is awake, alert, obeys commands, Oriented to person, place, time, situation. Cardiovascular: Patient's skin is warm and dry. Respiratory: Airway is patent Respiratory effort is even, unlabored, Respiratory pattern is regular, symmetrical. GI: No signs and/or symptoms were reported involving the gastrointestinal system. : No signs and/or symptoms were reported regarding the genitourinary system. EENT: No signs and/or symptoms were reported regarding the EENT system. Derm: Skin is intact, Skin is pink, warm \T\ dry. 03:00 Reassessment: Patient appears in no apparent distress at this time. Patient and/or jb4 family updated on plan of care and expected duration. Pain level reassessed. Patient is alert, oriented x 3, equal unlabored respirations, skin warm/dry/pink. 04:00 Reassessment: Patient appears in no apparent distress at this time. Patient and/or jb4 family updated on plan of care and expected duration. Pain level reassessed. Patient is alert, oriented x 3, equal unlabored respirations, skin warm/dry/pink. 05:17 Reassessment: Patient appears in no apparent distress at this time. Patient and/or jb4 family updated on plan of care and expected duration. Pain level reassessed. Patient is alert, oriented x 3, equal unlabored respirations, skin warm/dry/pink. Vital Signs: 01:23 BP 146 / 102; Pulse 85; Resp 16; Temp 98.3; Pulse Ox 100% on R/A; Weight 86.18 kg; pf1 Height 5 ft. 7 in. ; Pain 8/10; 03:00 BP 122 / 76; Pulse 78; Resp 16; Pulse Ox 100% on R/A; jb4 05:22 BP 122 / 82; Pulse 86; Resp 16; Pulse Ox 100% on R/A; jb4 01:23 Body Mass Index 29.76 (86.18 kg, 170.18 cm) - Percentile 93.5 % pf1 01:23 Pain Scale: Adult pf1 ED Course: 01:22 Patient arrived in ED. jj6 01:27 Zachary Crowe MD is Attending Physician. rn 01:35 Triage completed. pf1 01:46 Torito Arevalo, RN is Primary Nurse. jb4 01:53 Lipase Sent. jb4 01:54 CMP Sent. jb4 01:54 CBC with Diff Sent. jb4 02:21 Radiology exam delayed due to test not completed at this time. eh4 03:42 US Pelvis Complete In Process Unspecified. EDMS 04:16 CT Abd/Pelvis - IV Contrast Only In Process Unspecified. EDMS 05:17 No provider procedures requiring assistance completed. IV discontinued, intact, jb4 bleeding controlled, No redness/swelling at site. Pressure dressing applied. 05:17 Patient has correct armband on for positive identification. Bed in low position. Call jb4 light in reach. Side rails up X 1. Administered Medications: 01:41 CANCELLED (Duplicate Order): TORadol - lcotestop77 mg IVP once mechanical engineering intern: 05:17 VIS not applicable for this client. jb4 Outcome: 05:08 Discharge ordered by . rn 05:17 Discharged to home ambulatory, jb4 05:17 Condition: stable 05:17 Discharge instructions given to patient, Instructed on discharge instructions, follow up and referral plans. medication usage, Demonstrated understanding of instructions, follow-up care, medications, Prescriptions given X 1, 05:22 Patient left the ED. jb4 Signatures: Dispatcher [employer] EDSD Zachary Crowe MD MD rn Bryson, James, RN RN jb4 Dalia Bowden [facility] Leandro Molina [facility] Katherine García RN RN pf1
--- NOTE | 2023-01-24 05:09 | EDPHYS ---
Physician Documentation [facility] Name: Freda Marin Age: 17 yrs Sex: Female : 2005 Arrival Date: 01/24/2023 Time: 01:20 Bed 4 Private MD: ED Physician Zachary Crowe HPI: 01/24 01:52 This 17 yrs old Female presents to ER via Ambulatory with complaints of Pelvic Pain. rn 01:52 The patient presents with abdominal pain in the lower abdomen. Onset: The rn symptoms/episode began/occurred 1 hour(s) ago. The symptoms radiate to Rectum and anus. Associated signs and symptoms: Pertinent positives: nausea and vomiting, Pertinent negatives: blood in stools, chest pain, diarrhea, dysuria, fever, hematuria. The symptoms are described as achy. Modifying factors: The symptoms are alleviated by Hydroxyzine. the symptoms are aggravated by nothing. Severity of pain: At its worst the pain was moderate in the emergency department the pain has improved. The patient has experienced similar episodes in the past. The patient has not recently seen a physician. Patient and mother report sudden onset lower abdominal pain approximately 1 hour prior to arrival. Reports suprapubic pain that radiates to perianal region. No swelling around anus. Does report constipation. Threw up 1 time but mother states does that when she gets anxious. Has had this pain before without acute findings on CT scan or workup. Denies . No history of ovarian cyst. No vaginal bleeding or rectal bleeding. No vaginal discharge.. Historical: - Allergies: 01:35 Clindamycin; pf1 - PMHx: 01:35 anxiety; pf1 - PSHx: 01:35 Tonsillectomy; Adenoid excision; pf1 - Immunization history:: Adult Immunizations up to date, Last tetanus immunization: < 10 years ago Flu vaccine is not up to date. - Social history:: Smoking status: Patient denies any tobacco usage or history of. Patient/guardian denies using alcohol, street drugs. - Family history:: not pertinent. - Hospitalizations: : No recent hospitalization is reported. ROS: 01:52 Constitutional: Negative for fever, chills, and weight loss, Cardiovascular: Negative rn for chest pain, palpitations, and edema, Respiratory: Negative for shortness of breath, cough, wheezing, and pleuritic chest pain, Abdomen/GI: Positive for abdominal pain Back: Negative for injury and pain, : Negative for injury, bleeding, discharge, and swelling, MS/Extremity: Negative for injury and deformity, Skin: Negative for injury, rash, and discoloration, Neuro: Negative for headache, weakness, numbness, tingling, and seizure, Exam: 01:52 Constitutional: This is a well developed, well nourished patient who is awake, alert, rn and in no acute distress. Ambulatory to room with normal gait and not requiring assistance Head/Face: Normocephalic, atraumatic. Cardiovascular: Regular rate and rhythm. No pulse deficits. Respiratory: No increased work of breathing, no retractions or nasal flaring. Abdomen/GI: Soft, mild suprapubic tenderness. Anal exam normal, has nonthrombosed hemorrhoid, no evidence of perianal infection or perirectal abscess Neuro: Awake and alert, GCS 15 Vital Signs: 01:23 BP 146 / 102; Pulse 85; Resp 16; Temp 98.3; Pulse Ox 100% on R/A; Weight 86.18 kg; pf1 Height 5 ft. 7 in. ; Pain 8/10; 03:00 BP 122 / 76; Pulse 78; Resp 16; Pulse Ox 100% on R/A; jb4 05:22 BP 122 / 82; Pulse 86; Resp 16; Pulse Ox 100% on R/A; jb4 01:23 Body Mass Index 29.76 (86.18 kg, 170.18 cm) - Percentile 93.5 % pf1 01:23 Pain Scale: Adult pf1 MDM: 01:27 Patient medically screened. rn 04:19 ED course: Pain has resolved, patient sleeping comfortably. Pelvic ultrasound negative rn for torsion but shows ovarian cyst with small amount of pelvic free fluid. Could be signs of small ruptured cyst and explain patient's symptoms. CT abdomen pelvis pending to rule out any other cause.. 05:07 Differential diagnosis: diverticulitis, Ectopic , non-specific abd pain, rn Ovarian Torsion, Ureterolithiasis, urinary tract infection. Data reviewed: vital signs, nurses notes, lab test result(s), radiologic studies, CT scan, ultrasound, and as a result, I will discharge patient. Counseling: I had a detailed discussion with the patient and/or guardian regarding the historical points, exam findings, and any diagnostic results supporting the discharge/admit diagnosis, lab results, radiology results, the need for outpatient follow up, to return to the emergency department if symptoms worsen or persist or if there are any questions or concerns that arise at home. Response to treatment: the patient's symptoms have markedly improved after treatment, and as a result, I will discharge patient. Special discussion: Based on the patient's Hx, exam, and Dx evaluation, there is no indication for emergent surgery or inpatient Tx. It is understood by the patient/guardian that if the Sx's persist or worsen they need to return immediately for re-evaluation. I discussed with the patient/guardian in detail that at this point there is no indication for admission to the hospital. It is understood, however, that if the symptoms persist or worsen the patient needs to return immediately for re-evaluation. ED course: CT abdomen pelvis without acute findings. Right-sided ovarian cyst. Questionable urine infection. Will DC home with antibiotics and Motrin for the pain with return precautions. I have personally reviewed all of the results, including but not limited to blood tests and imaging deemed necessary to safely discharge this patient at this time. All results given to and printed out for patient. I personally went over all the results with the patient and answered all questions. Patient will follow-up with PCP and or specialist as discussed. Return precautions given and understood.. 01/24 01:41 Order name: CBC with Diff; Complete Time: 04:38 rn 01/24 01:41 Order name: CMP; Complete Time: 02:34 rn 01/24 01:41 Order name: Lipase; Complete Time: 02:34 rn 01/24 01:41 Order name: Test, Urine; Complete Time: 04:38 rn 01/24 01:41 Order name: Urinalysis w/ reflexes; Complete Time: 04:38 rn 01/24 02:22 Order name: CBC Smear Scan; Complete Time: 04:38 EDKS 01/24 04:08 Order name: Urine Culture EDKS 01/24 01:41 Order name: CT Abd/Pelvis - IV Contrast Only rn 01/24 01:42 Order name: US Pelvis Complete rn 01/24 01:41 Order name: IV Saline Lock; Complete Time: 01:53 rn 01/24 01:41 Order name: Labs collected and sent; Complete Time: 01:53 rn Administered Medications: 01:41 CANCELLED (Duplicate Order): TORadol - mg IVP once rn Disposition Summary: 01/24/23 05:08 Discharge Ordered Notes: Location: Home rn Problem: new rn Symptoms: have improved rn Condition: Stable rn Diagnosis - Other and unspecified ovarian cysts rn - Constipation, unspecified rn - UTI/ Urinary tract infection, site not specified rn Followup: rn - With: Private Physician - When: As needed - Reason: Recheck today's complaints, Re-evaluation by your physician Discharge Instructions: - Discharge Summary Sheet rn - Ovarian Cyst rn - Urinary Tract Infection, Adult rn Forms: - Medication Reconciliation Form rn - Thank You Letter rn - Antibiotic kiln furniture saw tender - Prescription Opioid Use rn - Patient Portal Instructions rn - Leadership Thank You Letter rn - Work release form jb4 Prescriptions: - Cipro 500 mg Oral Tablet - take 1 tablet ORAL route every 12 hours for 7 days; 14 tablet; Refills: 0, rn Product Selection Permitted Signatures: Dispatcher [employer] EDZachary Martinez MD MD rn Finley, Pamala, RN RN pf1 Corrections: (The following items were deleted from the chart) 01:41 01:41 TORadol - Ketorolac IVP 15 mg IVP once ordered. rn rn
[2023-01-24 05:27] VITALS: TEMP 98.3; O2SAT 100
[2023-01-24 05:30] VITALS: BP 122/82
--- NOTE | 2023-01-24 20:05 | RAD REPORT ---
EXAM DESCRIPTION: US - Pelvis Complete - 01/24/2023 3:40 am CLINICAL HISTORY: 17 years Female pelvic pain, rule out torsion COMPARISON: None TECHNIQUE: Transabdominal and endovaginal pelvic ultrasound was performed. FINDINGS: The uterus appears unremarkable and measures 7.9 cm longitudinally.. The endometrium is mi nimally thickened measuring approximately 1.1 cm.. The right ovary measures4.1 x 3.9 x 3.3 cm. There is a somewhat lobulated cyst in the right ovary ludwin suring approximately 2 cm in diameter. There is normal blood flow seen within the ovary. The left ovary measures 2.5 x 3.9 x 1.8 cm. The left ovary appears unremarkable. There is normal bloo d flow seen within the left ovary. Small amount of fluid is seen in the pelvic cul-de-sac. IMPRESSION: 1. Minimally thickened endometrium which may reflect the phase of the menstrual cycle. 2. 2 cm somewhat lobulated cyst in the right ovary likely incidental benign functional cyst. 3. Small amount of fluid in the pelvic cul-de-sac, which may be physiologic. Electronically signed by: Golden Simpson MD 01/24/2023 04:23 AM [facility] Due to temporary technical issues with the PACS/Fluency reporting system, reports are being signed by the in house radiologists without review as a courtesy to insure prompt reporting. The interpreting radiologist is fully responsible for the content of the report.
--- NOTE | 2023-01-24 20:18 | RAD REPORT ---
EXAM DESCRIPTION: CT - Abdomen Pelvis W Contrast - 01/24/2023 6:52 am CLINICAL HISTORY: 17 years Female; lower abd pain; IV ONLY Bed Name: 4 TECHNIQUE: CT of the abdomen and pelvis with intravenous contrast. All CT scans at this facility use dose modulation, iterative reconstruction, and/or weight based dosi ng when appropriate to reduce radiation dose to as low as reasonably achievable. COMPARISON: None. FINDINGS: Lower thorax: Lung bases are clear Abdomen: Stomach: Within normal limits Liver: No focal lesions. No intrahepatic ductal distention. Gallbladder: Nondistended Pancreas: Within normal limits Spleen: Within normal limits Right kidney: No hydronephrosis. No focal lesion. Left kidney: No hydronephrosis. No focal lesion. Adrenal glands: Within normal limits Vascular structures: Within normal limits Nodes: No lymphadenopathy by size criteria Pelvis: Small bowel: No significant distention. Appendix: Not visualized. No pericecal inflammatory changes. Colon: No distention or acute pericolonic edema. Moderate stool burden. Peritoneum: Small amount of free fluid in the pelvis. No free air. Bones: No acute bone findings. Bladder: Unremarkable. Reproductive organs: No acute findings. Simple appearing cyst in the right ovary measuring 2 cm. IMPRESSION: 1. No acute abdominopelvic findings. 2. Small amount of free fluid in the pelvis, could be physiologic. 3. Simple appearing 2 cm cyst in the right ovary. No follow-up imaging is recommended. 4. Moderate stool burden. Electronically signed by: Lauren Perez MD 01/24/2023 04:37 AM [employer] Due to temporary technical issues with the PACS/Fluency reporting system, reports are being signed by the in house radiologists without review as a courtesy to insure prompt reporting. The interpreting radiologist is fully responsible for the content of the report.
== END 2023-01-24 05:22 | disposition home or self-care (01) ==
LOC: ER 01:20
DX: N83.299 Other ovarian cyst, unspecified side (principal); N39.0 Urinary tract infection, site not specified; K59.00 Constipation, unspecified; Z88.3 Allergy status to other anti-infective agents
CPT/HCPCS: 87088; 85025; 81001; 87086; 36415; 81025; 87077; 87186; 83690; 80053; 74177; 76856; 99283; Q9967